=== PATIENT | male | born 1955 | race Two or more races ===

== ENCOUNTER 2023-10-10 15:37 | Emergency (ER) | payer OTHER, MEDICAID ==
[~2023-10-10] VITALS: Ht 167.6 cm; Wt 72.6 kg
[2023-10-10 16:20] LABS: BASOPHILS % (AUTO) 0.7 % (0.0-2.0); EOSINOPHILS # (AUTO) 0.2 K/uL (0.0-0.7); HEMATOCRIT 47 % (39-51); HEMOGLOBIN 15.6 g/dL (13.5-17.5); LYMPHOCYTES # (AUTO) 1.3 K/uL (0.8-4.8); LYMPHOCYTES % (AUTO) 17.6 % (20.0-44.0); MEAN CORPUSCULAR HEMOGLOBIN 30 PG (26.0-33.0); MEAN CORPUSCULAR HGB CONC 34 g/dl (31.0-36.0); MEAN CORPUSCULAR VOLUME 90 fL (80-96); MONOCYTES # (AUTO) 0.4 K/uL (0.1-1.30); NEUTROPHILS # (AUTO) 5.2 K/uL (1.8-8.9); NEUTROPHILS % (AUTO) 72.7 % (43.0-81.0); PLATELET COUNT (AUTO) 205 K/uL (150-450); RED CELL DISTRIBUTION WIDTH 13.3 % (11.5-15.0); WHITE BLOOD COUNT (AUTO) 7.2 K/uL (4.3-11.0)
[2023-10-10 16:34] LABS: CARBON DIOXIDE 24 mmol/L (21-32); CHLORIDE 102 mmol/L (98-107); GLUCOSE 116 mg/dL (74-106); POTASSIUM 4.1 mmol/L (3.5-5.1); SODIUM SERUM 136 mmol/L (136-145); UREA NITROGEN, BLOOD 25 mg/dL (7-18)
[2023-10-10 16:47] LABS: ALANINE AMINOTRANSFERASE 39 U/L (12-78); ALBUMIN 4.7 g/dL (3.4-5.0); ALKALINE PHOSPHATASE 76 U/L (46-116); ASPARTATE AMINOTRANSFERASE 27 U/L (15-37); BILIRUBIN,DIRECT 0.2 mg/dL (0.0-0.2); BILIRUBIN,TOTAL 0.7 mg/dL (0.2-1.0); NT-PRO BNP 44 pg/mL (0-125)
[2023-10-10] MEDS ORDERED: IOHEXOL-350 100 ML VIAL IV ONE (16:47)
[2023-10-10] MEDS ORDERED: CT SWABBABLE VALVE TRANS SET 1 EA INFUS.SET MC ONE (16:48)
[2023-10-10] MEDS ORDERED: IV NS 0.9% 250 ML IV ONE (16:48)
[2023-10-10] MEDS: IV NS 0.9% 1,000 ML BAG IV ONE (17:13)
[2023-10-10] MEDS: CEFTRIAXONE 1GM BAG (ER ONLY) 50 ML IV ONE (17:17)
[2023-10-10] MEDS: AZITHROMYCIN 500 MG in IV D5W 250 ML IV ONE (17:17)
[2023-10-10] MEDS ORDERED: METFORMIN 850 MG TABLET ONE (21:13)
[2023-10-10] MEDS: METFORMIN 850 MG TABLET PO ONE (21:16)
[2023-10-10 23:11] VITALS: BP 130/75; TEMP 98.1; O2SAT 99
== END 2023-10-10 23:11 | disposition short-term general hospital (02) ==
LOC: ER 15:45
DX: J18.9 Pneumonia, unspecified organism (principal); E11.9 Type 2 diabetes mellitus without complications; Z20.822 Contact with and (suspected) exposure to COVID-19
CPT/HCPCS: 99291; 96374; 71275; 71045; 96375; 87426; 93005; 85025; 80048; 87040 ×2; 80076; 36415; 84484; 83880; J7030; J7050; J0456; A4223; J0696; Q9967; J7060